=== PATIENT | male | born 1995 | race Two or more races ===

== ENCOUNTER 2018-08-23 01:29 | Emergency (ER) | payer SELFPAY ==
[~2018-08-23] VITALS: Ht 180.3 cm; Wt 81.6 kg
--- NOTE | 2018-08-23 02:01 | PHYS DOC ---
Past Medical History Past Medical History: No Pertinent History Past Surgical History: No Surgical History Alcohol Use: Heavy Drug Use: None Adult General Chief Complaint Chief Complaint: ALCOHOL INTOXICATION HPI HPI Patient is a 23 year old male who presents with chest pain. This started approximately 7:00 in the evening on 08/22/2017. Patient had the discomfort after drinking a bottle of vodka. Worse with deep breaths. No PE risk factors. Some nausea, no vomiting. No fevers. No radiation of the discomfort. Discomfort is improving over time. Patient describes the discomfort as sharp and moderate in intensity when it was at its worst.[] Review of Systems Review of Systems Constitutional: Denies fever or chills [] Eyes: Denies change in visual acuity, redness, or eye pain [] HENT: Denies nasal congestion or sore throat [] Respiratory: Denies cough or shortness of breath [] Cardiovascular: No additional information not addressed in HPI [] GI: Denies abdominal pain, nausea, vomiting, bloody stools or diarrhea [] : Denies dysuria or hematuria [] Musculoskeletal: Denies back pain or joint pain [] Integument: Denies rash or skin lesions [] Neurologic: Denies headache, focal weakness or sensory changes [] Endocrine: Denies polyuria or polydipsia [] All other systems were reviewed and found to be within normal limits, except as documented in this note. Family History Family History No significant family history of cardiac disease Current Medications Current Medications Current Medications Medications (Trade) Dose Ordered Sig/Yoly Start Time Stop Time Status Last Admin Dose Admin Multi-Ingredient Mouthwash/Gargle (Gi Cocktail) 20 ml 1X ONCE 08/23/18 02:30 08/23/18 02:31 DC 08/23/18 02:13 20 ML Allergies Allergies Allergies Coded Allergies Type Severity Reaction Last Updated Verified No Known Drug Allergies 08/23/18 No Physical Exam Physical Exam Constitutional: Well developed, well nourished, no acute distress, non-toxic appearance. [] HENT: Normocephalic, atraumatic, bilateral external ears normal, oropharynx moist, no oral exudates, nose normal. [] Eyes: PERRLA, EOMI, conjunctiva normal, no discharge. [] Neck: Normal range of motion, no tenderness, supple, no stridor. [] Cardiovascular:Heart rate regular rhythm, no murmur [] Lungs & Thorax: Bilateral breath sounds clear to auscultation . There is tenderness to palpation in the lower sternal region. This re-creates the pain.[] Abdomen: Bowel sounds normal, soft, no tenderness, no masses, no pulsatile masses. [] Skin: Warm, dry, no erythema, no rash. [] Back: No tenderness, no CVA tenderness. [] Extremities: No tenderness, no cyanosis, no clubbing, ROM intact, no edema. [] Neurologic: Alert and oriented X 3, normal motor function, normal sensory function, no focal deficits noted. [] Psychologic: Affect normal, judgement normal, mood normal. [] Current Patient Data Vital Signs Vital Signs Date Time Temp Pulse Resp B/P (MAP) Pulse Ox O2 Delivery O2 Flow Rate FiO2 08/23/18 01:51 98.2 76 20 153/99 (117) 99 Room Air 98.2 Lab Values Laboratory Tests Test 08/23/18 02:00 White Blood Count 5.8 x10^3/uL (4.0-11.0) Red Blood Count 4.83 x10^6/uL (4.30-5.70) Hemoglobin 15.2 g/dL (13.0-17.5) Hematocrit 43.5 % (39.0-53.0) Mean Corpuscular Volume 90 fL (79-100) Mean Corpuscular Hemoglobin 31 pg (25-35) Mean Corpuscular Hemoglobin Concent 35 g/dL (31-37) Red Cell Distribution Width 13.8 % (11.5-14.5) Platelet Count 294 x10^3/uL (140-400) Neutrophils (%) (Auto) 37 % (31-73) Lymphocytes (%) (Auto) 43 % (24-48) Monocytes (%) (Auto) 7 % (0-9) Eosinophils (%) (Auto) 12 % (0-3) H Basophils (%) (Auto) 1 % (0-3) Neutrophils # (Auto) 2.2 x10^3uL (1.8-7.7) Lymphocytes # (Auto) 2.5 x10^3/uL (1.0-4.8) Monocytes # (Auto) 0.4 x10^3/uL (0.0-1.1) Eosinophils # (Auto) 0.7 x10^3/uL (0.0-0.7) Basophils # (Auto) 0.1 x10^3/uL (0.0-0.2) Prothrombin Time 12.5 SEC (11.7-14.0) Prothrombin Time INR 1.0 (0.8-1.1) D-Dimer (Alyse) 0.40 ug/mlFEU (0.00-0.50) Sodium Level 139 mmol/L (136-145) Potassium Level 3.3 mmol/L (3.5-5.1) L Chloride Level 102 mmol/L (98-107) Carbon Dioxide Level 29 mmol/L (21-32) Anion Gap 8 (6-14) Blood Urea Nitrogen 10 mg/dL (8-26) Creatinine 1.2 mg/dL (0.7-1.3) Estimated GFR (Cockcroft-Gault) 75.0 BUN/Creatinine Ratio 8 (6-20) Glucose Level 111 mg/dL (70-99) H Calcium Level 8.6 mg/dL (8.5-10.1) Magnesium Level 1.6 mg/dL (1.8-2.4) L Total Bilirubin 0.4 mg/dL (0.2-1.0) Aspartate Amino Transferase (AST) 58 U/L (15-37) H Alanine Aminotransferase (ALT) 70 U/L (16-63) H Alkaline Phosphatase 85 U/L (46-116) Troponin I Quantitative < 0.017 ng/mL (0.000-0.055) Total Protein 7.5 g/dL (6.4-8.2) Albumin 3.6 g/dL (3.4-5.0) Albumin/Globulin Ratio 0.9 (1.0-1.7) L Lipase 248 U/L (73-393) Laboratory Tests 08/23/18 02:00 Laboratory Tests 08/23/18 02:00 EKG EKG EKG shows a normal sinus rhythm, leftward axis at -8, normal QTC at 398 ms, no ST elevation, no old EKG available for comparison.[] Radiology/Procedures Radiology/Procedures Chest x-ray shows no acute features[] Course & Med Decision Making Course & Med Decision Making Pertinent Labs and Imaging studies reviewed. (See chart for details) ED course: Patient arrived, was placed in bed, in tolerated exam well. Patient achieved very little relief with the GI cocktail so ketorolac was administered with better results. After the return of the lab and imaging findings, these were discussed with the patient who voiced understanding. 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 Patient was discharged in improved condition. Judd decision making: There is no evidence of an acute coronary syndrome, no pneumonia, no pneumothorax, no evidence of a PE, no pancreatitis. No evidence of esophageal disruption, no evidence of thoracic aortic aneurysm dissection. This may be at some level and esophagitis issue/gastritis issue given the amount of alcohol ingested.[] Dragon Disclaimer Dragon Disclaimer This electronic medical record was generated, in whole or in part, using a voice recognition dictation system. Departure Departure Impression: Primary Impression: Chest pain Disposition: 01 HOME, SELF-CARE Condition: GOOD Patient Instructions: Chest Pain (Nonspecific) Additional Instructions: Follow-up with your regular doctor in 2 days. If you do not have regular doctor a list of local low-cost clinics will be provided for you. Drink alcohol only in moderation, and do not drink and drive. Return to the ER if worsening discomfort, worsening difficulty breathing, or any other concerns. Scripts Meloxicam (MELOXICAM) 7.5 Mg Tablet 7.5 MG PO DAILY, #20 TAB Prov: ILANA JUNIOR DO 08/23/18 Problem Qualifiers Primary Impression: Chest pain Chest pain type: chest pain on breathing Qualified Codes: R07.1 - Chest pain on breathing ILANA JUNIOR DO Aug 23, 2018 02:01
[2018-08-23 02:14] LABS: BASO # 0.1 x10^3/uL (0.0-0.2); BASO % 1 % (0-3); EOS # 0.7 x10^3/uL (0.0-0.7); EOS % 12 % (0-3); HEMATOCRIT 43.5 % (39.0-53.0); HEMOGLOBIN 15.2 g/dL (13.0-17.5); LYMPH # 2.5 x10^3/uL (1.0-4.8); LYMPH % 43 % (24-48); MEAN CORPUSCULAR HEMOGLOBIN 31 pg (25-35); MEAN CORPUSCULAR HGB CONC 35 g/dL (31-37); MEAN CORPUSCULAR VOLUME 90 fL (79-100); MONO # 0.4 x10^3/uL (0.0-1.1); MONO % 7 % (0-9); NEUT # 2.2 x10^3uL (1.8-7.7); NEUT % 37 % (31-73); PLATELET COUNT 294 x10^3/uL (140-400); RED BLOOD COUNT 4.83 x10^6/uL (4.30-5.70); RED CELL DISTRIBUTION WIDTH 13.8 % (11.5-14.5); WHITE BLOOD COUNT 5.8 x10^3/uL (4.0-11.0)
[2018-08-23 02:24] LABS: CALCIUM 8.6 mg/dL (8.5-10.1); CREATININE 1.2 mg/dL (0.7-1.3); POTASSIUM 3.3 mmol/L (3.5-5.1)
[2018-08-23 02:25] LABS: PROTHROMBIN TIME PATIENT 12.5 SEC (11.7-14.0)
[2018-08-23 02:28] LABS: D-DIMER 0.4 ug/mlFEU (0.00-0.50)
[2018-08-23 02:29] LABS: ALBUMIN 3.6 g/dL (3.4-5.0); ALBUMIN/GLOBULIN RATIO 0.9 (1.0-1.7); MAGNESIUM 1.6 mg/dL (1.8-2.4); TOTAL BILIRUBIN 0.4 mg/dL (0.2-1.0); TOTAL PROTEIN 7.5 g/dL (6.4-8.2)
[2018-08-23] MEDS ORDERED: LIDO:MAALOX 1:1 20 ML SINGLE DOSE. SWSW ONE (02:30)
[2018-08-23 03:15] VITALS: BP 153/98
[2018-08-23] MEDS ORDERED: MELO7.5T29 PO (03:22)
--- NOTE | 2018-08-23 03:53 | RAD ---
AP chest. HISTORY: Chest pain AP view was taken of the chest. Lungs are clear. Heart is normal in size. There is no pleural effusion. IMPRESSION: 1. No acute chest disease. Electronically signed by: Segun Munoz MD (08/23/2018 3:49 AM) [id number]
[2018-08-23] MEDS ORDERED: KETOROLAC 15 MG/ML VIAL. IV ONE (04:00)
--- NOTE | 2018-08-23 06:42 | EKG ---
[facility] [address] [place] [address] Test Date: 2018-08-23 Test Time: 01:45:07 Pat Name: HOLDEN KERNS Department: Room: Gender: Product Marketing Consultant: : [id number] Requested By: ILANA JUNIOR Order Number: [id number] Reading MD: Measurements Intervals [place] Rate: 69 P: 33 AL: 156 QRS: -8 QRSD: 100 T: 19 QT: 370 QTc: 398 Interpretive Statements SINUS RHYTHM LEFTWARD AXIS NO SPECIFIC ECG ABNORMALITIES RI6.01 No previous ECG available for comparison
== END 2018-08-23 03:29 | disposition home or self-care (01) ==
LOC: ER 01:29
DX: R07.1 Chest pain on breathing (principal); F10.20 Alcohol dependence, uncomplicated; Y90.9 Presence of alcohol in blood, level not specified
CPT/HCPCS: 36415; 71045; 80053; 83690; 83735; 84484; 85025; 85379; 85610; 93005; 96374; 99284; J1885